=== PATIENT | female | born 1960 | race African-American/Black ===

== ENCOUNTER 2019-01-16 11:50 | Inpatient (IN) | payer MEDICARE, OTHER ==
[~2019-01-16] VITALS: Ht 167.6 cm; Wt 120.7 kg
[2019-01-16 12:10] VITALS: BP 123/69
[2019-01-16 15:15] VITALS: BP 127/85
[2019-01-16] MEDS: GABAPENTIN 300 MG CAPSULE PO SCH ×2 (16:00→20:28)
[2019-01-16] MEDS ORDERED: LORATADINE 10 MG TABLET PO PRN (16:15)
[2019-01-16] MEDS ORDERED: OMEPRAZOLE 20 MG CAPSULE PO PRN (16:15)
[2019-01-16] MEDS ORDERED: POLYETHYLENE GLYCOL 3350 17 GM PACKET PO PRN (16:15)
[2019-01-16] MEDS ORDERED: BISACODYL 5 MG EC TABLET PO PRN (16:15)
[2019-01-16] MEDS ORDERED: ATEN100T PO (16:50)
[2019-01-16] MEDS ORDERED: LEVO200 PO (16:50)
[2019-01-17 03:19] VITALS: BP 136/70
[2019-01-17 06:08] LABS: EOSINOPHILS % (AUTO) 1.4 % (1.0-6.0); HEMATOCRIT 30.7 % (36-46); LYMPHOCYTES # (AUTO) 1.4 K/uL (1.0-4.8); LYMPHOCYTES % (AUTO) 13.7 % (22.0-44.0); MEAN CORPUSCULAR HEMOGLOBIN 31.4 pg (26.0-34.0); MEAN CORPUSCULAR HGB CONC 32.4 G/dL (31.0-37.0); MEAN CORPUSCULAR VOLUME 97 fL (80-100); MONOCYTES # (AUTO) 1.2 K/uL (0.1-1.0); MONOCYTES % (AUTO) 11.7 % (2.0-9.0); NEUTROPHILS # (AUTO) 7.6 K/uL (1.8-7.7); NEUTROPHILS % (AUTO) 72.2 % (40.0-70.0); PLATELET COUNT (AUTO) 314 K/uL (150-450); RED BLOOD CELL COUNT(AUTO) 3.17 MIL/uL (4.00-5.20); RED CELL DISTRIBUTION WIDTH 27.9 % (11.5-14.5)
[2019-01-17 06:14] LABS: ALANINE AMINOTRANSFERASE 30 U/L (12-78); ALBUMIN 2.5 g/dL (3.4-5.0); ALKALINE PHOSPHATASE 100 U/L (46-116); ANION GAP 9 mmol/L (8-16); ASPARTATE AMINOTRANSFERASE 25 U/L (15-37); BILIRUBIN,TOTAL 0.5 mg/dL (0.1-1.0); CALCIUM, TOTAL 9.4 mg/dL (8.8-10.5); CARBON DIOXIDE 25 mmol/L (22-29); CHLORIDE 99 mmol/L (98-107); CREATININE 0.71 mg/dL (0.60-1.30); GLOMERULAR FILTR. RATE CALC > 60 mL/min (>60); GLUCOSE,RANDOM 83 mg/dL (70-110); POTASSIUM 4.2 mmol/L (3.5-5.1); SODIUM SERUM 133 mmol/L (136-145); TOTAL PROTEIN, SERUM 7.4 g/dL (6.4-8.2); UREA NITROGEN, BLOOD 9 mg/dL (7-18)
[2019-01-17] MEDS: LEVOTHYROXINE SODIUM 200 MCG TABLET PO SCH (06:26)
[2019-01-17 07:20] VITALS: BP 146/88
[2019-01-17] MEDS ORDERED: FERROUS SULFATE 325 MG EC TABLET PO SCH (07:30)
[2019-01-17] MEDS: ASPIRIN 81 MG EC TABLET PO SCH (07:41)
[2019-01-17] MEDS: FOLIC ACID 1 MG TABLET PO SCH (07:41)
[2019-01-17] MEDS: ATENOLOL 100 MG TABLET PO SCH (07:41)
[2019-01-17] MEDS: GABAPENTIN 300 MG CAPSULE PO SCH ×3 (07:46→20:56)
[2019-01-17] MEDS ORDERED: FLUTICASONE PROPIONATE 50 MCG/SPRAY 16 GM NASAL SPRAY NASAL SCH (09:00)
[2019-01-17] MEDS ORDERED: ENOXAPARIN SODIUM 40 MG/0.4 ML PF SYRINGE SQ SCH (09:00)
[2019-01-17] MEDS ORDERED: FLUTICASONE PROPIONATE 50 MCG/SPRAY 16 GM NASAL SPRAY NASAL PRN (09:45)
[2019-01-17] MEDS: ENOXAPARIN SODIUM 40 MG/0.4 ML PF SYRINGE SQ SCH (12:57)
[2019-01-17 15:37] VITALS: BP 104/67
[2019-01-18 04:22] VITALS: BP 111/77
[2019-01-18] MEDS: LEVOTHYROXINE SODIUM 200 MCG TABLET PO SCH (06:02)
[2019-01-18 08:00] VITALS: BP 111/72
[2019-01-18] MEDS: ENOXAPARIN SODIUM 40 MG/0.4 ML PF SYRINGE SQ SCH (08:04)
[2019-01-18] MEDS: GABAPENTIN 300 MG CAPSULE PO SCH (08:05)
[2019-01-18] MEDS: DOCUSATE SODIUM 100 MG CAPSULE PO PRN (08:06)
[2019-01-18] MEDS: FOLIC ACID 1 MG TABLET PO SCH (08:06)
[2019-01-18] MEDS: ATENOLOL 100 MG TABLET PO SCH (08:06)
[2019-01-18] MEDS: ASPIRIN 81 MG EC TABLET PO SCH (08:07)
[2019-01-18 10:40] VITALS: BP 104/71
[2019-01-18 15:20] VITALS: BP 125/83
[2019-01-18] MEDS: GABAPENTIN 100 MG CAPSULE PO SCH (20:37)
[2019-01-18] MEDS: MELATONIN 5 MG TABLET PO PRN (20:37)
[2019-01-18 23:05] VITALS: BP 110/77
[2019-01-19] MEDS: LEVOTHYROXINE SODIUM 200 MCG TABLET PO SCH (05:25)
[2019-01-19 07:30] VITALS: BP 119/64
[2019-01-19] MEDS: ASPIRIN 81 MG EC TABLET PO SCH (08:35)
[2019-01-19] MEDS: FERROUS SULFATE 325 MG EC TABLET PO SCH (08:37)
[2019-01-19] MEDS: GABAPENTIN 100 MG CAPSULE PO SCH ×2 (08:40→20:43)
[2019-01-19] MEDS: FOLIC ACID 1 MG TABLET PO SCH (08:40)
[2019-01-19] MEDS: ATENOLOL 100 MG TABLET PO SCH (08:40)
[2019-01-19] MEDS: ENOXAPARIN SODIUM 40 MG/0.4 ML PF SYRINGE SQ SCH (08:41)
[2019-01-19 16:24] VITALS: BP 103/58
[2019-01-19] MEDS: MELATONIN 5 MG TABLET PO PRN (20:43)
[2019-01-20 01:09] VITALS: BP 135/71
[2019-01-20] MEDS: LEVOTHYROXINE SODIUM 200 MCG TABLET PO SCH (04:44)
[2019-01-20 08:00] VITALS: BP 126/78
[2019-01-20] MEDS: DOCUSATE SODIUM 100 MG CAPSULE PO PRN (08:19)
[2019-01-20] MEDS: GABAPENTIN 100 MG CAPSULE PO SCH ×2 (08:19→20:58)
[2019-01-20] MEDS: ASPIRIN 81 MG EC TABLET PO SCH (08:19)
[2019-01-20] MEDS: ATENOLOL 100 MG TABLET PO SCH (08:19)
[2019-01-20] MEDS: ENOXAPARIN SODIUM 40 MG/0.4 ML PF SYRINGE SQ SCH (08:19)
[2019-01-20] MEDS: FOLIC ACID 1 MG TABLET PO SCH (08:20)
[2019-01-20] MEDS: NYSTATIN 15 GM POWDER BOTTLE TP SCH ×2 (13:40→20:58)
[2019-01-20 16:06] VITALS: BP 134/81
[2019-01-20] MEDS: MELATONIN 5 MG TABLET PO PRN (22:02)
[2019-01-20 23:30] VITALS: BP 135/73
[2019-01-21] MEDS: LEVOTHYROXINE SODIUM 200 MCG TABLET PO SCH (06:00)
[2019-01-21] MEDS: ERGOCALCIFEROL (VIT D2) 50,000 UNITS CAPSULE PO SCH (09:49)
[2019-01-21] MEDS: FERROUS SULFATE 325 MG EC TABLET PO SCH (09:49)
[2019-01-21] MEDS: GABAPENTIN 100 MG CAPSULE PO SCH ×2 (09:50→20:07)
[2019-01-21] MEDS: ATENOLOL 100 MG TABLET PO SCH (09:50)
[2019-01-21] MEDS: ASPIRIN 81 MG EC TABLET PO SCH (09:50)
[2019-01-21] MEDS: FOLIC ACID 1 MG TABLET PO SCH (09:50)
[2019-01-21] MEDS: NYSTATIN 15 GM POWDER BOTTLE TP SCH ×2 (09:52→20:07)
[2019-01-21] MEDS: ENOXAPARIN SODIUM 40 MG/0.4 ML PF SYRINGE SQ SCH (09:52)
[2019-01-21 13:40] VITALS: BP 127/72
[2019-01-21 15:39] VITALS: BP 125/71
[2019-01-21] MEDS: MELATONIN 5 MG TABLET PO PRN (20:07)
[2019-01-21 23:30] VITALS: BP 131/85
[2019-01-22] MEDS: LEVOTHYROXINE SODIUM 200 MCG TABLET PO SCH (05:10)
[2019-01-22 07:25] VITALS: BP 149/54
[2019-01-22] MEDS: ATENOLOL 100 MG TABLET PO SCH (08:47)
[2019-01-22] MEDS: FOLIC ACID 1 MG TABLET PO SCH (08:47)
[2019-01-22] MEDS: GABAPENTIN 100 MG CAPSULE PO SCH ×2 (08:47→21:24)
[2019-01-22] MEDS: DOCUSATE SODIUM 100 MG CAPSULE PO PRN (08:47)
[2019-01-22] MEDS: ENOXAPARIN SODIUM 40 MG/0.4 ML PF SYRINGE SQ SCH (08:47)
[2019-01-22] MEDS: NYSTATIN 15 GM POWDER BOTTLE TP SCH ×2 (08:48→21:25)
[2019-01-22] MEDS: ASPIRIN 81 MG EC TABLET PO SCH (08:49)
[2019-01-22 15:23] VITALS: BP 122/81
[2019-01-22] MEDS: DICLOFENAC SODIUM 1% 100 GM GEL [2GM] TP SCH (21:25)
[2019-01-22] MEDS: MELATONIN 5 MG TABLET PO PRN (21:25)
[2019-01-23 04:00] VITALS: BP 131/76
[2019-01-23] MEDS: LEVOTHYROXINE SODIUM 200 MCG TABLET PO SCH (05:12)
[2019-01-23 07:20] VITALS: BP 122/63
[2019-01-23] MEDS: TAMSULOSIN HCL 0.4 MG CAPSULE PO SCH (08:11)
[2019-01-23] MEDS: GABAPENTIN 100 MG CAPSULE PO SCH ×2 (08:11→20:40)
[2019-01-23] MEDS: FERROUS SULFATE 325 MG EC TABLET PO SCH (08:11)
[2019-01-23] MEDS: ENOXAPARIN SODIUM 40 MG/0.4 ML PF SYRINGE SQ SCH (08:11)
[2019-01-23] MEDS: ASPIRIN 81 MG EC TABLET PO SCH (08:11)
[2019-01-23] MEDS: FOLIC ACID 1 MG TABLET PO SCH (08:11)
[2019-01-23] MEDS: ATENOLOL 100 MG TABLET PO SCH (08:11)
[2019-01-23] MEDS: DICLOFENAC SODIUM 1% 100 GM GEL [2GM] TP SCH ×2 (08:12→20:40)
[2019-01-23] MEDS: NYSTATIN 15 GM POWDER BOTTLE TP SCH ×2 (08:12→20:40)
[2019-01-23] MEDS: DOCUSATE SODIUM 250 MG CAPSULE PO SCH ×2 (10:18→20:37)
[2019-01-23] MEDS: POLYETHYLENE GLYCOL 3350 17 GM PACKET PO SCH (10:18)
[2019-01-23] MEDS: HYDROCODONE/ACETAMINOPHEN 5-325 MG TABLET PO PRN (14:51)
[2019-01-23 15:43] VITALS: BP 102/72
[2019-01-23] MEDS: MELATONIN 5 MG TABLET PO PRN (20:40)
[2019-01-23 23:01] VITALS: BP 129/74
[2019-01-24] MEDS: HYDROCODONE/ACETAMINOPHEN 5-325 MG TABLET PO PRN ×3 (01:59→20:09)
[2019-01-24] MEDS: LEVOTHYROXINE SODIUM 200 MCG TABLET PO SCH (05:03)
[2019-01-24 07:12] VITALS: BP 121/73
[2019-01-24] MEDS: POLYETHYLENE GLYCOL 3350 17 GM PACKET PO SCH (09:00)
[2019-01-24] MEDS: DOCUSATE SODIUM 250 MG CAPSULE PO SCH ×2 (09:00→21:00)
[2019-01-24] MEDS: NYSTATIN 15 GM POWDER BOTTLE TP SCH ×2 (09:23→20:08)
[2019-01-24] MEDS: ASPIRIN 81 MG EC TABLET PO SCH (09:24)
[2019-01-24] MEDS: DICLOFENAC SODIUM 1% 100 GM GEL [2GM] TP SCH ×2 (09:24→20:08)
[2019-01-24] MEDS: GABAPENTIN 100 MG CAPSULE PO SCH ×2 (09:24→20:08)
[2019-01-24] MEDS: ENOXAPARIN SODIUM 40 MG/0.4 ML PF SYRINGE SQ SCH (09:24)
[2019-01-24] MEDS: ATENOLOL 100 MG TABLET PO SCH (09:25)
[2019-01-24] MEDS: FOLIC ACID 1 MG TABLET PO SCH (09:25)
[2019-01-24] MEDS: TAMSULOSIN HCL 0.4 MG CAPSULE PO SCH (09:25)
[2019-01-24 15:28] VITALS: BP 106/68
[2019-01-25 03:05] VITALS: BP 114/61
[2019-01-25] MEDS: HYDROCODONE/ACETAMINOPHEN 5-325 MG TABLET PO PRN ×2 (03:05→19:11)
[2019-01-25] MEDS: LEVOTHYROXINE SODIUM 200 MCG TABLET PO SCH (05:01)
[2019-01-25 07:30] VITALS: BP 130/96
[2019-01-25] MEDS: POLYETHYLENE GLYCOL 3350 17 GM PACKET PO SCH (09:00)
[2019-01-25] MEDS: DOCUSATE SODIUM 250 MG CAPSULE PO SCH ×2 (09:00→20:28)
[2019-01-25] MEDS: GABAPENTIN 100 MG CAPSULE PO SCH ×3 (09:16→20:22)
[2019-01-25] MEDS: NYSTATIN 15 GM POWDER BOTTLE TP SCH ×3 (09:16→20:22)
[2019-01-25] MEDS: ENOXAPARIN SODIUM 40 MG/0.4 ML PF SYRINGE SQ SCH ×2 (09:16→09:23)
[2019-01-25] MEDS: ATENOLOL 100 MG TABLET PO SCH ×2 (09:17→09:24)
[2019-01-25] MEDS: DICLOFENAC SODIUM 1% 100 GM GEL [2GM] TP SCH ×3 (09:18→20:22)
[2019-01-25] MEDS: FERROUS SULFATE 325 MG EC TABLET PO SCH ×2 (09:18→09:24)
[2019-01-25] MEDS: FOLIC ACID 1 MG TABLET PO SCH ×2 (09:18→09:23)
[2019-01-25] MEDS: ASPIRIN 81 MG EC TABLET PO SCH ×2 (09:18→09:24)
[2019-01-25] MEDS: TAMSULOSIN HCL 0.4 MG CAPSULE PO SCH ×2 (09:18→09:23)
[2019-01-25 15:10] VITALS: BP 105/56
[2019-01-25] MEDS: MELATONIN 5 MG TABLET PO PRN (20:24)
[2019-01-26 01:38] VITALS: BP 108/67
[2019-01-26] MEDS: LEVOTHYROXINE SODIUM 200 MCG TABLET PO SCH (05:01)
[2019-01-26] MEDS: ENOXAPARIN SODIUM 40 MG/0.4 ML PF SYRINGE SQ SCH (08:22)
[2019-01-26] MEDS: TAMSULOSIN HCL 0.4 MG CAPSULE PO SCH (08:22)
[2019-01-26] MEDS: GABAPENTIN 100 MG CAPSULE PO SCH ×2 (08:23→20:31)
[2019-01-26] MEDS: POLYETHYLENE GLYCOL 3350 17 GM PACKET PO SCH (08:24)
[2019-01-26] MEDS: FOLIC ACID 1 MG TABLET PO SCH (08:24)
[2019-01-26] MEDS: DOCUSATE SODIUM 250 MG CAPSULE PO SCH ×2 (08:24→21:00)
[2019-01-26] MEDS: ATENOLOL 100 MG TABLET PO SCH (08:24)
[2019-01-26] MEDS: ASPIRIN 81 MG EC TABLET PO SCH (08:38)
[2019-01-26] MEDS: DICLOFENAC SODIUM 1% 100 GM GEL [2GM] TP SCH ×2 (10:23→20:31)
[2019-01-26] MEDS: HYDROCODONE/ACETAMINOPHEN 5-325 MG TABLET PO PRN ×2 (10:23→20:39)
[2019-01-26] MEDS: NYSTATIN 15 GM POWDER BOTTLE TP SCH ×2 (10:23→20:31)
[2019-01-26 10:59] VITALS: BP 118/72
[2019-01-26 16:03] VITALS: BP 110/68
[2019-01-27] MEDS: HYDROCODONE/ACETAMINOPHEN 5-325 MG TABLET PO PRN ×3 (04:34→20:36)
[2019-01-27] MEDS: LEVOTHYROXINE SODIUM 200 MCG TABLET PO SCH (06:28)
[2019-01-27 08:00] VITALS: BP 108/65
[2019-01-27] MEDS: NYSTATIN 15 GM POWDER BOTTLE TP SCH ×2 (09:00→20:11)
[2019-01-27] MEDS: DOCUSATE SODIUM 250 MG CAPSULE PO SCH ×2 (09:28→20:02)
[2019-01-27] MEDS: GABAPENTIN 100 MG CAPSULE PO SCH ×2 (09:28→20:02)
[2019-01-27] MEDS: FERROUS SULFATE 325 MG EC TABLET PO SCH (09:28)
[2019-01-27] MEDS: ASPIRIN 81 MG EC TABLET PO SCH (09:28)
[2019-01-27] MEDS: POLYETHYLENE GLYCOL 3350 17 GM PACKET PO SCH (09:28)
[2019-01-27] MEDS: ENOXAPARIN SODIUM 40 MG/0.4 ML PF SYRINGE SQ SCH (09:29)
[2019-01-27] MEDS: TAMSULOSIN HCL 0.4 MG CAPSULE PO SCH (09:29)
[2019-01-27] MEDS: DICLOFENAC SODIUM 1% 100 GM GEL [2GM] TP SCH ×2 (09:30→20:10)
[2019-01-27] MEDS: FOLIC ACID 1 MG TABLET PO SCH (09:31)
[2019-01-27] MEDS: ATENOLOL 100 MG TABLET PO SCH (09:31)
[2019-01-27 12:27] VITALS: BP 116/69
[2019-01-27 16:30] VITALS: BP 116/71
[2019-01-27 23:17] VITALS: BP 109/75
[2019-01-27] MEDS: MELATONIN 5 MG TABLET PO PRN (23:17)
[2019-01-28] MEDS: HYDROCODONE/ACETAMINOPHEN 5-325 MG TABLET PO PRN (03:54)
[2019-01-28] MEDS: LEVOTHYROXINE SODIUM 200 MCG TABLET PO SCH (05:30)
[2019-01-28 07:39] LABS: EOSINOPHILS % (AUTO) 2.1 % (1.0-6.0); HEMATOCRIT 29.2 % (36-46); HEMOGLOBIN 9.1 g/dL (12.0-16.0); LYMPHOCYTES # (AUTO) 1.5 K/uL (1.0-4.8); MEAN CORPUSCULAR HEMOGLOBIN 29.9 pg (26.0-34.0); MEAN CORPUSCULAR HGB CONC 31.3 G/dL (31.0-37.0); MEAN CORPUSCULAR VOLUME 96 fL (80-100); MONOCYTES % (AUTO) 13.4 % (2.0-9.0); NEUTROPHILS # (AUTO) 4.4 K/uL (1.8-7.7); NEUTROPHILS % (AUTO) 62.5 % (40.0-70.0); PLATELET COUNT (AUTO) 341 K/uL (150-450); RED BLOOD CELL COUNT(AUTO) 3.05 MIL/uL (4.00-5.20); RED CELL DISTRIBUTION WIDTH 25.7 % (11.5-14.5)
[2019-01-28 08:00] VITALS: BP 115/70
[2019-01-28 08:02] LABS: ANION GAP 8 mmol/L (8-16); CALCIUM, TOTAL 9.2 mg/dL (8.8-10.5); CARBON DIOXIDE 25 mmol/L (22-29); CHLORIDE 104 mmol/L (98-107); CREATININE 0.81 mg/dL (0.60-1.30); GLOMERULAR FILTR. RATE CALC > 60 mL/min (>60); GLUCOSE,RANDOM 80 mg/dL (70-110); POTASSIUM 4.2 mmol/L (3.5-5.1); SODIUM SERUM 137 mmol/L (136-145); UREA NITROGEN, BLOOD 10 mg/dL (7-18)
[2019-01-28] MEDS: ENOXAPARIN SODIUM 40 MG/0.4 ML PF SYRINGE SQ SCH (09:59)
[2019-01-28] MEDS: POLYETHYLENE GLYCOL 3350 17 GM PACKET PO SCH (09:59)
[2019-01-28] MEDS: GABAPENTIN 100 MG CAPSULE PO SCH ×2 (10:00→20:32)
[2019-01-28] MEDS: DOCUSATE SODIUM 250 MG CAPSULE PO SCH ×2 (10:00→20:39)
[2019-01-28] MEDS: ERGOCALCIFEROL (VIT D2) 50,000 UNITS CAPSULE PO SCH (10:00)
[2019-01-28] MEDS: TAMSULOSIN HCL 0.4 MG CAPSULE PO SCH (10:00)
[2019-01-28] MEDS: FOLIC ACID 1 MG TABLET PO SCH (10:00)
[2019-01-28] MEDS: ATENOLOL 100 MG TABLET PO SCH (10:01)
[2019-01-28] MEDS: ASPIRIN 81 MG EC TABLET PO SCH (10:01)
[2019-01-28] MEDS: DICLOFENAC SODIUM 1% 100 GM GEL [2GM] TP SCH ×2 (10:01→20:39)
[2019-01-28] MEDS: NYSTATIN 15 GM POWDER BOTTLE TP SCH ×2 (10:01→20:39)
[2019-01-28 15:00] VITALS: BP 106/59
[2019-01-29 03:10] VITALS: BP 117/72
[2019-01-29] MEDS: LEVOTHYROXINE SODIUM 200 MCG TABLET PO SCH (05:26)
[2019-01-29 07:14] VITALS: BP 124/72
[2019-01-29] MEDS: TAMSULOSIN HCL 0.4 MG CAPSULE PO SCH (08:52)
[2019-01-29] MEDS: ASPIRIN 81 MG EC TABLET PO SCH (08:52)
[2019-01-29] MEDS: ENOXAPARIN SODIUM 40 MG/0.4 ML PF SYRINGE SQ SCH (08:52)
[2019-01-29] MEDS: FERROUS SULFATE 325 MG EC TABLET PO SCH (08:52)
[2019-01-29] MEDS: DICLOFENAC SODIUM 1% 100 GM GEL [2GM] TP SCH ×2 (08:52→20:06)
[2019-01-29] MEDS: ATENOLOL 100 MG TABLET PO SCH (08:53)
[2019-01-29] MEDS: FOLIC ACID 1 MG TABLET PO SCH (08:53)
[2019-01-29] MEDS: GABAPENTIN 100 MG CAPSULE PO SCH ×2 (08:53→20:06)
[2019-01-29] MEDS: DOCUSATE SODIUM 250 MG CAPSULE PO SCH ×2 (08:55→21:00)
[2019-01-29] MEDS: NYSTATIN 15 GM POWDER BOTTLE TP SCH (09:00)
[2019-01-29] MEDS: POLYETHYLENE GLYCOL 3350 17 GM PACKET PO SCH (09:00)
[2019-01-29] MEDS ORDERED: NYSTATIN 15 GM POWDER BOTTLE TP PRN (10:00)
[2019-01-29] MEDS: HYDROCODONE/ACETAMINOPHEN 5-325 MG TABLET PO PRN (19:29)
[2019-01-30 00:05] VITALS: BP 128/70
[2019-01-30] MEDS: LEVOTHYROXINE SODIUM 200 MCG TABLET PO SCH (05:04)
[2019-01-30 07:57] VITALS: BP 118/63
[2019-01-30] MEDS: FOLIC ACID 1 MG TABLET PO SCH (08:03)
[2019-01-30] MEDS: GABAPENTIN 100 MG CAPSULE PO SCH ×2 (08:04→20:49)
[2019-01-30] MEDS: DICLOFENAC SODIUM 1% 100 GM GEL [2GM] TP SCH ×2 (08:04→20:49)
[2019-01-30] MEDS: ATENOLOL 100 MG TABLET PO SCH (08:04)
[2019-01-30] MEDS: TAMSULOSIN HCL 0.4 MG CAPSULE PO SCH (08:04)
[2019-01-30] MEDS: ASPIRIN 81 MG EC TABLET PO SCH (08:04)
[2019-01-30] MEDS: ENOXAPARIN SODIUM 40 MG/0.4 ML PF SYRINGE SQ SCH (08:05)
[2019-01-30] MEDS: DOCUSATE SODIUM 250 MG CAPSULE PO SCH ×2 (08:05→20:50)
[2019-01-30] MEDS: POLYETHYLENE GLYCOL 3350 17 GM PACKET PO SCH (08:05)
[2019-01-30] MEDS: HYDROCODONE/ACETAMINOPHEN 5-325 MG TABLET PO PRN ×2 (09:13→22:00)
[2019-01-30 15:46] VITALS: BP 106/54
[2019-01-30] MEDS ORDERED: DOCU250C91 PO (19:45)
[2019-01-30] MEDS ORDERED: GABA-529 PO (19:45)
[2019-01-30] MEDS ORDERED: FERR-89 PO (19:45)
[2019-01-30] MEDS ORDERED: TAMS-1 PO (19:45)
[2019-01-30] MEDS ORDERED: FOLI1 PO (19:45)
[2019-01-30] MEDS ORDERED: POLY17PO PO (19:45)
[2019-01-30] MEDS ORDERED: ASPI-1182 PO (19:45)
[2019-01-30] MEDS ORDERED: DICL2100G TP (19:45)
[2019-01-30] MEDS ORDERED: ERGO500014 PO (19:45)
[2019-01-30] MEDS: MELATONIN 5 MG TABLET PO PRN (20:49)
[2019-01-31 05:00] VITALS: BP 116/64
[2019-01-31] MEDS: LEVOTHYROXINE SODIUM 200 MCG TABLET PO SCH (05:01)
[2019-01-31 07:20] VITALS: BP 118/69
[2019-01-31] MEDS: ENOXAPARIN SODIUM 40 MG/0.4 ML PF SYRINGE SQ SCH (08:45)
[2019-01-31] MEDS: TAMSULOSIN HCL 0.4 MG CAPSULE PO SCH (08:46)
[2019-01-31] MEDS: FOLIC ACID 1 MG TABLET PO SCH (08:46)
[2019-01-31] MEDS: GABAPENTIN 100 MG CAPSULE PO SCH ×3 (08:46→21:07)
[2019-01-31] MEDS: ASPIRIN 81 MG EC TABLET PO SCH (08:46)
[2019-01-31] MEDS: FERROUS SULFATE 325 MG EC TABLET PO SCH (08:46)
[2019-01-31] MEDS: DICLOFENAC SODIUM 1% 100 GM GEL [2GM] TP SCH ×2 (08:46→21:09)
[2019-01-31] MEDS: POLYETHYLENE GLYCOL 3350 17 GM PACKET PO SCH (08:47)
[2019-01-31] MEDS: DOCUSATE SODIUM 250 MG CAPSULE PO SCH ×2 (08:47→21:00)
[2019-01-31] MEDS: ATENOLOL 100 MG TABLET PO SCH (10:01)
[2019-01-31] MEDS: DULoxetine HCL 30 MG CAPSULE PO SCH (13:22)
[2019-01-31 15:20] VITALS: BP 106/69
[2019-01-31] MEDS: MELATONIN 5 MG TABLET PO PRN (21:08)
[2019-02-01] VITALS (11 sets, daily range): BP systolic 102–126; BP diastolic 51–84
[2019-02-01] MEDS: LEVOTHYROXINE SODIUM 200 MCG TABLET PO SCH (05:00)
[2019-02-01] MEDS: DULoxetine HCL 30 MG CAPSULE PO SCH (07:51)
[2019-02-01] MEDS: ATENOLOL 100 MG TABLET PO SCH (07:51)
[2019-02-01] MEDS: FOLIC ACID 1 MG TABLET PO SCH (07:52)
[2019-02-01] MEDS: ENOXAPARIN SODIUM 40 MG/0.4 ML PF SYRINGE SQ SCH (07:52)
[2019-02-01] MEDS: TAMSULOSIN HCL 0.4 MG CAPSULE PO SCH (07:52)
[2019-02-01] MEDS: GABAPENTIN 100 MG CAPSULE PO SCH ×3 (07:52→20:57)
[2019-02-01] MEDS: ASPIRIN 81 MG EC TABLET PO SCH (07:52)
[2019-02-01] MEDS: DICLOFENAC SODIUM 1% 100 GM GEL [2GM] TP SCH ×2 (07:53→20:57)
[2019-02-01] MEDS: POLYETHYLENE GLYCOL 3350 17 GM PACKET PO SCH (09:00)
[2019-02-01] MEDS: DOCUSATE SODIUM 250 MG CAPSULE PO SCH ×2 (09:00→20:57)
[2019-02-01] MEDS: HYDROCODONE/ACETAMINOPHEN 5-325 MG TABLET PO PRN (14:55)
[2019-02-01] MEDS: MELATONIN 5 MG TABLET PO PRN (20:57)
[2019-02-02] VITALS: BP 107/63
[2019-02-02] MEDS ORDERED: DULO30CA2 PO (00:52)
[2019-02-02 01:09] VITALS: BP 107/63
[2019-02-02] MEDS: LEVOTHYROXINE SODIUM 200 MCG TABLET PO SCH (05:03)
[2019-02-02 08:30] VITALS: BP 133/72
[2019-02-02] MEDS: DOCUSATE SODIUM 250 MG CAPSULE PO SCH (09:00)
[2019-02-02] MEDS: DICLOFENAC SODIUM 1% 100 GM GEL [2GM] TP SCH (09:00)
[2019-02-02] MEDS: POLYETHYLENE GLYCOL 3350 17 GM PACKET PO SCH (09:00)
[2019-02-02] MEDS: ASPIRIN 81 MG EC TABLET PO SCH (09:29)
[2019-02-02] MEDS: GABAPENTIN 100 MG CAPSULE PO SCH (09:29)
[2019-02-02] MEDS: FERROUS SULFATE 325 MG EC TABLET PO SCH (09:29)
[2019-02-02] MEDS: TAMSULOSIN HCL 0.4 MG CAPSULE PO SCH (09:29)
[2019-02-02] MEDS: ENOXAPARIN SODIUM 40 MG/0.4 ML PF SYRINGE SQ SCH (09:30)
[2019-02-02] MEDS: DULoxetine HCL 30 MG CAPSULE PO SCH (09:34)
[2019-02-02] MEDS: FOLIC ACID 1 MG TABLET PO SCH (09:34)
[2019-02-02] MEDS: ATENOLOL 100 MG TABLET PO SCH (09:34)
[2019-02-02] MEDS ORDERED: HYDR-4061 PO (09:57)
== END 2019-02-02 10:45 | disposition home health service (06) | DRG 74 ==
LOC: 2WR 11:50
PROC: 5A09357 Assistance with Respiratory Ventilation, Less than 24 Consecutive Hours, Continuous Positive Airway Pressure (ICD-10-PCS; 2019-01-18)
PROC: 5A09357 Assistance with Respiratory Ventilation, Less than 24 Consecutive Hours, Continuous Positive Airway Pressure (ICD-10-PCS; 2019-01-19)
PROC: 5A09357 Assistance with Respiratory Ventilation, Less than 24 Consecutive Hours, Continuous Positive Airway Pressure (ICD-10-PCS; principal; 2019-01-21)
DX: G62.9 Polyneuropathy, unspecified (principal); Z68.41 Body mass index [BMI] 40.0-44.9, adult; F33.2 Major depressive disorder, recurrent severe without psychotic features; C90.00 Multiple myeloma not having achieved remission; E66.9 Obesity, unspecified; G47.30 Sleep apnea, unspecified; I10 Essential (primary) hypertension; R29.6 Repeated falls; K30 Functional dyspepsia; R26.9 Unspecified abnormalities of gait and mobility; D50.9 Iron deficiency anemia, unspecified; D72.829 Elevated white blood cell count, unspecified; E55.9 Vitamin D deficiency, unspecified; F41.1 Generalized anxiety disorder; D63.8 Anemia in other chronic diseases classified elsewhere; Z53.20 Procedure and treatment not carried out because of patient's decision for unspecified reasons; K59.00 Constipation, unspecified; M17.0 Bilateral primary osteoarthritis of knee; N31.9 Neuromuscular dysfunction of bladder, unspecified; Z79.82 Long term (current) use of aspirin; Z86.73 Personal history of transient ischemic attack (TIA), and cerebral infarction without residual deficits; Z90.710 Acquired absence of both cervix and uterus; Z82.0 Family history of epilepsy and other diseases of the nervous system; Z79.899 Other long term (current) drug therapy; Z91.81 History of falling; Z88.1 Allergy status to other antibiotic agents
CPT/HCPCS: 73521; 87081; 93970; 94660; 97110; 97116; 97150; 97162; 97166; 97530; 97535; 99366; J1650